=== PATIENT | male | born 1945 | race Caucasian/White ===

== ENCOUNTER 2016-12-11 05:26 | Inpatient (IN) | payer MEDICARE, BC ==
[~2016-12-11] VITALS: Ht 175.3 cm; Wt 83.9 kg
[2016-12-11] VITALS (9 sets, daily range): BP systolic 99–138; BP diastolic 62–106; PULSE 100–119; RESP 16–18; TEMP 96.8–99.2; O2SAT 96–98
[2016-12-11] MEDS ORDERED: MAGN400T24 (05:46)
[2016-12-11] MEDS ORDERED: ZANT150T2 PO (05:46)
[2016-12-11] MEDS ORDERED: AMLO5 PO (05:46)
[2016-12-11] MEDS ORDERED: LOSA50TA PO (05:46)
[2016-12-11] MEDS ORDERED: PROS5TAB PO (05:46)
[2016-12-11] MEDS ORDERED: GABA300C5 PO (05:46)
[2016-12-11] MEDS ORDERED: AMIO200T PO (05:46)
[2016-12-11] MEDS ORDERED: XARE20TA PO (05:46)
[2016-12-11] MEDS ORDERED: CALC600T10 PO (05:46)
[2016-12-11] MEDS ORDERED: TRAM50TA PO (05:46)
[2016-12-11] MEDS ORDERED: NITR0.4S SL (05:46)
[2016-12-11] MEDS ORDERED: FLUO1TAB3 PO (05:46)
[2016-12-11] MEDS ORDERED: HYDR-2376 PO (05:46)
[2016-12-11] MEDS ORDERED: SODIUM CHLOR 0.9% 1000 ML INJ 1,000 ML IV SCH (06:19)
--- NOTE | 2016-12-11 06:19 | PD ---
HPI Chief Complaint: Abdominal Pain Time Seen by Provider: 06:07 Travel History International Travel<30 days: No Contact w/Intl Traveler<30days: No Traveled to known affect area: No History of Present Illness HPI The patient is a 71-year-old male that complains of bilateral lower quadrant pain for almost 4 days. He has nausea and vomiting but denies any diarrhea. The patient has had a weight loss procedure where they bypassed part of his small intestine. When they did this they took out his appendix. He is also had a cholecystectomy. He also has a history of chronic atrial fibrillation. He has coronary artery disease and has had a coronary bypass procedure. He is from [facility]. He denies any chest pain or shortness of breath. He denies any fever or cough. The patient takes Xarelto and amiodarone for his atrial fibrillation. PFSH Past Medical History Atrial Fibrillation: Yes Heart Rhythm Problems: Yes Cardiac Catheterization: Yes Chest Pain: Yes Diminished Hearing: Yes GERD: Yes Hypertension: Yes Tetanus Vaccination: < 5 Years Influenza Vaccination: Yes Past Surgical History Abdominal Surgery: Yes (1971) Cardiac Surgery: Yes Cholecystectomy: Yes (2015) Coronary Artery Bypass Graft: Yes (1989) Social History Alcohol Use: No Tobacco Use: No Substance Use: No Allergies-Medications (Allergen,Severity, Reaction): Coded Allergies: No Known Allergies (Unverified , 12/11/16) Reported Meds & Prescriptions Reported Meds & Active Scripts Active Reported Calcium + D3 (Calcium Carbonate-Cholecalciferol) 600-200 Mg-Unit Tab 1 Tab PO BID Magnesium (Magnesium Oxide) 400 Mg Tablet Gabapentin 300 Mg Cap 300 Mg PO TID Nitrostat SL (Nitroglycerin) 0.4 Mg Subl 0.4 Mg SL DIRECTED PRN 1 tablet under the tongue as needed for chest pain. Repeat every 5 minutes for a total of 3 DOSES or call 911 if NO relief. Xarelto (Rivaroxaban) 20 Mg Tab 20 Mg PO DAILY Zantac (Ranitidine HCl) 150 Mg Tab 150 Mg PO BID Proscar (Finasteride) 5 Mg Tab 5 Mg PO DAILY Do not crush. Amiodarone (Amiodarone HCl) 200 Mg Tab 200 Mg PO DAILY Hydrocodone-Acetaminophen 7.5-300 Mg Tab 1 Tab PO Q4H PRN Tramadol (Tramadol HCl) 50 Mg Tab 50 Mg PO Q6H PRN Norvasc (Amlodipine Besylate) 5 Mg Tab 5 Mg PO DAILY Losartan (Losartan Potassium) 50 Mg Tab 50 Mg PO DAILY Fluoxetine (Fluoxetine HCl) 20 Mg Tab 20 Mg PO DAILY Review of Systems Except as stated in HPI: all other systems reviewed are Neg Physical Exam Narrative GENERAL: The patient is alert, oriented 3 in moderate apparent distress with his abdominal discomfort. His vital signs show heart rate of 100, atrial fibrillation rhythm but are otherwise normal. SKIN: Focused skin assessment warm/dry. HEAD: Atraumatic. Normocephalic. EYES: Pupils equal and round. No scleral icterus. No injection or drainage. ENT: No nasal bleeding or discharge. Mucous membranes pink and moist. NECK: Trachea midline. No JVD. CARDIOVASCULAR: Regular rate and rhythm. No murmur appreciated. RESPIRATORY: No accessory muscle use. Clear to auscultation. Breath sounds equal bilaterally. GASTROINTESTINAL: Abdomen soft, with tenderness to direct palpation in the bilateral lower quadrants, nondistended. Hepatic and splenic margins not palpable. No guarding or rebound is present. There is a right lower quadrant scar where they did the intestinal bypass procedure for weight loss which is well-healed. MUSCULOSKELETAL: No obvious deformities. No clubbing. No cyanosis. No edema. NEUROLOGICAL: Awake and alert. No obvious cranial nerve deficits. Motor grossly within normal limits. Normal speech. PSYCHIATRIC: Appropriate mood and affect; insight and judgment normal. Data Data Last Documented VS Vital Signs Date Time Temp Pulse Resp B/P Pulse Ox O2 Delivery O2 Flow Rate FiO2 12/11/16 06:32 96 Room Air 12/11/16 05:35 97.4 100 18 110/62 Orders Complete Blood Count With Diff (12/11/16 06:19) Comprehensive Metabolic Panel (12/11/16 06:19) Lipase (12/11/16 06:19) Urinalysis - C+S If Indicated (12/11/16 06:19) Ct Abd/Pel W Iv Contrast(Rout) (12/11/16 06:19) Iv Access Insert/Monitor (12/11/16 06:19) Ecg Monitoring (12/11/16 06:19) Oximetry (12/11/16 06:19) Ondansetron Inj (Zofran Inj) (12/11/16 06:30) Sodium Chlor 0.9% 1000 Ml Inj (Ns 1000 M (12/11/16 06:19) Sodium Chloride 0.9% Flush (Melissa Flush) (12/11/16 06:30) Oral Contrast - Adult (12/11/16 06:22) Diatrizoate Liq ( Gastroview Liq) (12/11/16 06:34) Labs Laboratory Tests Test 12/11/16 06:20 White Blood Count 14.8 TH/MM3 Red Blood Count 5.36 MIL/MM3 Hemoglobin 13.6 GM/DL Hematocrit 42.3 % Mean Corpuscular Volume 78.9 FL Mean Corpuscular Hemoglobin 25.3 PG Mean Corpuscular Hemoglobin 32.1 % Concent Red Cell Distribution Width 15.0 % Platelet Count 205 TH/MM3 Mean Platelet Volume 10.0 FL Neutrophils (%) (Auto) % Lymphocytes (%) (Auto) % Monocytes (%) (Auto) % Eosinophils (%) (Auto) % Basophils (%) (Auto) % Neutrophils # (Auto) TH/MM3 Lymphocytes # (Auto) TH/MM3 Monocytes # (Auto) TH/MM3 Eosinophils # (Auto) TH/MM3 Basophils # (Auto) TH/MM3 CBC Comment AUTO DIFF Sodium Level 136 MEQ/L Potassium Level 3.7 MEQ/L Chloride Level 101 MEQ/L Carbon Dioxide Level 23.8 MEQ/L Anion Gap 11 MEQ/L Blood Urea Nitrogen 21 MG/DL Creatinine 1.80 MG/DL Estimat Glomerular Filtration 37 ML/MIN Rate Random Glucose 84 MG/DL Calcium Level 8.4 MG/DL Total Bilirubin 0.9 MG/DL Aspartate Amino Transf 63 U/L (AST/SGOT) Alanine Aminotransferase 280 U/L (ALT/SGPT) Total Protein 6.9 GM/DL Albumin 2.8 GM/DL Lipase 223 U/L [facility] Medical Decision Making Medical Screen Exam Complete: Yes Emergency Medical Condition: Yes Medical Record Reviewed: Yes Differential Diagnosis Small bowel obstruction, dehydration, electrolyte disorder, gastritis, gastroenteritis, ischemic bowelunlikely, anemia, pancreatitis, pyelonephritis, cystitis, colitis Narrative Course It is now 0700 and the patient is left with Dr. Warner. Marcos Green MD Dec 11, 2016 06:19
[2016-12-11] MEDS ORDERED: SODIUM CHLORIDE 0.9% FLUSH 10 ML FLUSH IV FLUSH PRN ×2 (06:30→09:00)
[2016-12-11] MEDS ORDERED: ONDANSETRON HCL 4 MG/2 ML VIAL IVP ONE (06:30)
[2016-12-11 06:31] LABS: HEMATOCRIT 42.3 % (39.0-51.0); MEAN CELL VOLUME 78.9 FL (80.0-100.0); MEAN CORPUSCULAR HEMOGLOBIN 25.3 PG (27.0-34.0); MEAN CORPUSCULAR HGB CONC 32.1 % (32.0-36.0); PLATELET COUNT 205 TH/MM3 (150-450); RED BLOOD COUNT 5.36 MIL/MM3 (4.50-5.90); WHITE BLOOD COUNT 14.8 TH/MM3 (4.0-11.0)
[2016-12-11] MEDS ORDERED: DIATRIZOATE MEGLUM/DIATRIZOATE SOD 9 ML CUP ONE (06:34)
[2016-12-11 06:39] LABS: CHLORIDE 101 MEQ/L (98-107); POTASSIUM 3.7 MEQ/L (3.5-5.1); SODIUM (NA) 136 MEQ/L (136-145)
[2016-12-11 06:41] LABS: HEMO FLAGS AUTO DIFF
[2016-12-11 06:43] LABS: ANION GAP 11 MEQ/L (5-15); BICARBONATE 23.8 MEQ/L (21.0-32.0); BLOOD UREA NITROGEN 21 MG/DL (7-18)
[2016-12-11 06:46] LABS: ALT (GPT) 280 U/L (12-78); AST (GOT) 63 U/L (15-37); GLOMERULAR FILTRATION RATE 37 ML/MIN (>89)
[2016-12-11 06:47] LABS: TOTAL BILIRUBIN ADULT 0.9 MG/DL (0.2-1.0)
[2016-12-11 06:49] LABS: ALKALINE PHOSPHATASE 234 U/L (45-117)
[2016-12-11 06:58] LABS: BANDS 3 % (0-6); EOSINOPHILS 1 % (0-4); NEUTROPHIL # MANUAL DIFF 13.3 TH/MM3 (1.8-7.7); POLYS (SEG NEUTROPHILS) 87 % (16-70); WBC DIFF SAMPLE 100
[2016-12-11 06:59] LABS: PLATELET ESTIMATE SMEAR NORMAL (NORMAL); PLATELET MORPHOLOGY NORMAL (NORMAL); SCAN/DIFF FINAL DIFF MANUAL
[2016-12-11] MEDS ORDERED: IODIXANOL 320 MG/ML 10 ML VIAL (for Rad CT) IV ONE (07:54)
--- NOTE | 2016-12-11 07:57 | PD ---
Data Data Last Documented VS Vital Signs Date Time Temp Pulse Resp B/P Pulse Ox O2 Delivery O2 Flow Rate FiO2 12/11/16 06:47 16 12/11/16 06:47 106 130/81 98 12/11/16 06:32 Room Air 12/11/16 05:35 97.4 Orders Complete Blood Count With Diff (12/11/16 06:19) Comprehensive Metabolic Panel (12/11/16 06:19) Lipase (12/11/16 06:19) Urinalysis - C+S If Indicated (12/11/16 06:19) Ct Abd/Pel W Iv Contrast(Rout) (12/11/16 06:19) Iv Access Insert/Monitor (12/11/16 06:19) Ecg Monitoring (12/11/16 06:19) Oximetry (12/11/16 06:19) Ondansetron Inj (Zofran Inj) (12/11/16 06:30) Sodium Chlor 0.9% 1000 Ml Inj (Ns 1000 M (12/11/16 06:19) Sodium Chloride 0.9% Flush (Ns Flush) (12/11/16 06:30) Oral Contrast - Adult (12/11/16 06:22) Diatrizoate Liq ( Gastrorogelio Liq) (12/11/16 06:34) Iodixanol 320 Inj (Rad Ct) (Visipaque 32 (12/11/16 07:54) Hydromorphone Pf Inj (Dilaudid Pf Inj) (12/11/16 08:30) Mri Mrcp W & W/O Contrast (12/11/16 ) Labs Laboratory Tests Test 12/11/16 12/11/16 06:20 08:00 White Blood Count 14.8 TH/MM3 Red Blood Count 5.36 MIL/MM3 Hemoglobin 13.6 GM/DL Hematocrit 42.3 % Mean Corpuscular Volume 78.9 FL Mean Corpuscular Hemoglobin 25.3 PG Mean Corpuscular Hemoglobin 32.1 % Concent Red Cell Distribution Width 15.0 % Platelet Count 205 TH/MM3 Mean Platelet Volume 10.0 FL Neutrophils (%) (Auto) % Lymphocytes (%) (Auto) % Monocytes (%) (Auto) % Eosinophils (%) (Auto) % Basophils (%) (Auto) % Neutrophils # (Auto) TH/MM3 Lymphocytes # (Auto) TH/MM3 Monocytes # (Auto) TH/MM3 Eosinophils # (Auto) TH/MM3 Basophils # (Auto) TH/MM3 CBC Comment AUTO DIFF Differential Total Cells 100 Counted Neutrophils % (Manual) 87 % Band Neutrophils % 3 % Lymphocytes % 3 % Monocytes % 6 % Eosinophils % 1 % Neutrophils # (Manual) 13.3 TH/MM3 Differential Comment FINAL DIFF MANUAL Platelet Estimate NORMAL Platelet Morphology Comment NORMAL Red Cell Morphology Comment NORMAL Sodium Level 136 MEQ/L Potassium Level 3.7 MEQ/L Chloride Level 101 MEQ/L Carbon Dioxide Level 23.8 MEQ/L Anion Gap 11 MEQ/L Blood Urea Nitrogen 21 MG/DL Creatinine 1.80 MG/DL Estimat Glomerular Filtration 37 ML/MIN Rate Random Glucose 84 MG/DL Calcium Level 8.4 MG/DL Total Bilirubin 0.9 MG/DL Aspartate Amino Transf 63 U/L (AST/SGOT) Alanine Aminotransferase 280 U/L (ALT/SGPT) Alkaline Phosphatase 234 U/L Total Protein 6.9 GM/DL Albumin 2.8 GM/DL Lipase 223 U/L Urine Collection Type CLEAN CATCH Urine Color YELLOW Urine Turbidity CLEAR Urine pH 6.0 Urine Specific [place] 1.012 Urine Protein 30 mg/dL Urine Glucose (UA) NEG mg/dL Urine Ketones NEG mg/dL Urine Occult Blood SMALL Urine Nitrite NEG Urine Bilirubin NEG Urine Leukocyte Esterase NEG Urine RBC 4-9 /hpf Urine Squamous Epithelial 6-8 /hpf Cells Urine Amorphous Sediment MOD Urine Hyaline Casts 0-2 /lpf Urine Fine Granular Casts 0-2 /lpf Microscopic Urinalysis Comment CULT NOT INDICATED Urine Collection Time 0800 [facility] Medical Record Reviewed: Yes Supervised Visit with LURDES: No Narrative Course CBC & BMP Diagram 12/11/16 06:20 Neutrophils 87% Bands 3 AST 63 ALT 280 Alk phos [address] ab/pel: pancreatitis Pt denies etoh, no hx HLD, pt reports hx cholecystectomy 2/2 GB sludge. ? Choledocholithiasis ? poss mass. d/w GI, Dr Han, who advises transfer to [facility] for MRCP and if necessary ERCP. D/w Dr Sanchez for H. Pt HD stable in [facility] and considered stable for floor with telemetry at [facility]. Diagnosis Primary Impression: Pancreatitis Qualified Code: K85.90 - Acute pancreatitis, unspecified complication status, unspecified pancreatitis type Admitting Information Admitting Physician Requests: Admit Chema Warner MD Dec 11, 2016 07:57
--- NOTE | 2016-12-11 08:09 | RADRPT ---
EXAM DATE/TIME: 12/11/2016 07:35 This report includes an Addendum and supersedes previous reports for this exam. [facility] COMPARISON: No previous studies available for comparison. INDICATIONS : Bilateral mid abdominal pain with nausea. IV CONTRAST: 50 cc Visipaque (iodixanol) IV ORAL CONTRAST: Prescribed oral contrast ingested. RADIATION DOSE: 19.13 CTDIvol (mGy) MEDICAL HISTORY : Cardiovascular disease. Gastroesophageal reflux disease. Hypertension. SURGICAL HISTORY : CABG Cholecystectomy. ENCOUNTER: Initial ACUITY: 3 days PAIN SCALE: 5/10 LOCATION: Bilateral abdomen TECHNIQUE: Volumetric scanning of the abdomen and pelvis was performed. Using automated exposure control and ad justment of the mA and/or kV according to patient size, radiation dose was kept as low as reasonably achievable to obtain optimal diagnostic quality images. DICOM format image data is available electro nically for review and comparison. FINDINGS: The patient is status post cholecystectomy. There is a cyst in the left lobe of the liver medial segm ent at the dome 1.1 cm. There is abnormal increased attenuation of the peripancreatic fat and trace f luid and stranding characteristic of acute pancreatitis. The adrenal glands, spleen are unremarkable. Small cyst upper pole left kidney. Right kidney unremarkable. Atherosclerotic calcification of the a alvino and iliac vessels are noted. There is a metallic rectangular shaped foreign body within the infr arenal IVC on image 53. Urinary bladder is unremarkable. There is no evidence of bowel obstruction. T he lung bases are clear. Osseous structures demonstrate degenerative changes with L5 spondylolysis an d levoscoliosis. CONCLUSION: 1. Acute pancreatitis. 2. Left renal cyst. 3. Liver cyst. 4. Atherosclerosis. Zoran Wilkerson MD on December 11, 2016 at 8:04 Board Certified Radiologist. This report was verified electronically. ADDENDUM: Upon further review there is a calcified stone in the distal common bile duct measuring 7.1 mm. Zoran Wilkerson MD on December 11, 2016 at 11:02 Board Certified Radiologist. This report was verified electronically.
[2016-12-11 08:10] LABS: BLOOD, URINE SMALL (NEG); GLUCOSE,URINE NEG (NEG); KETONE, URINE NEG (NEG); NITRITE,URINE NEG (NEG)
[2016-12-11 08:15] LABS: METHOD OF COLLECTION CLEAN CATCH; URINE COLOR YELLOW (YELLW/STRAW)
[2016-12-11 08:17] LABS: COMMENT (UR) CULT NOT INDICATED; COMMENT2 (UR) MUCOUS PRESENT; CULTURE IF INDICATED CULT NOT INDICATED; HYALINE CAST, URINE 0-2 /lpf (RARE)
[2016-12-11] MEDS ORDERED: HYDROmorphone HCL PF 1 MG/ML VIAL IV PUSH ONE (08:30)
[2016-12-11] MEDS ORDERED: ACETAMINOPHEN 325 MG TAB PO PRN (09:00)
[2016-12-11] MEDS ORDERED: BISACODYL 10 MG SUPP RECTAL PRN (09:00)
[2016-12-11] MEDS ORDERED: LACTULOSE SYRUP 20 GM/30 ML CUP PO PRN (09:00)
[2016-12-11] MEDS ORDERED: MAGNESIUM HYDROXIDE SUSP 30 ML CUP PO PRN (09:00)
[2016-12-11] MEDS ORDERED: HEPARIN SODIUM - SQ 10,000 UNITS/ML VIAL SQ SCH (09:00)
[2016-12-11] MEDS ORDERED: SENNOSIDES 8.6 MG TAB PO PRN (09:00)
[2016-12-11] MEDS ORDERED: NALOXONE HCL 0.4 MG/ML AMP IV PRN (09:00)
[2016-12-11] MEDS: SODIUM CHLOR 0.9% 1000 ML INJ 1,000 ML IV SCH (09:23)
--- NOTE | 2016-12-11 09:34 | HHI.HP ---
HPI Service [facility] Primary Care Physician Non-Staff Admission Diagnosis Pancreatitis Diagnoses: Chief Complaint: Abdominal pain, nausea and vomiting. Travel History International Travel<30 Days: No Contact w/Intl Traveler <30 Da: No Traveled to Known Affected Are: No Sepsis Criteria SIRS Criteria (2 or more): Heart rate over 90, WBC > 11431, < 4000 or > 10% bands History of Present Illness Mr. Muhammad is a pleasant 71-year-old male with a history of atrial fibrillation currently on Xarelto, CAD status post CABG, cholecystectomy who presents to the emergency department on 12/11/2016 due to nausea vomiting and abdominal pain. About 4 days ago patient started having nausea vomiting and abdominal pain mostly in the right upper quadrant as well as mid epigastric area. His epigastric pain does not radiate to the back. His pain is sharp and comes off and on. He denies any fever or chills. Patient felt somewhat better on 12/09/2016. However last night he felt lethargic and this morning he decided to come to the emergency department for evaluation. Denies any hematuria or dysuria. No cough or shortness of breath. No bowel movement in 2 days. Review of Systems Except as stated in HPI: all other systems reviewed are Neg Past Family Social History Past Medical History Coronary artery disease Atrial fibrillation Hypertension GERD Past Surgical History Small intestinal bypass surgery for weight loss 1972 Cholecystectomy CABG in 1989 Rotator cuff surgery Carpal tunnel surgery bilateral. Reported Medications Calcium + D3 (Calcium Carbonate-Cholecalciferol) 600-200 Mg-Unit Tab 1 Tab PO BID Magnesium (Magnesium Oxide) 400 Mg Tablet Gabapentin 300 Mg Cap 300 Mg PO TID Nitrostat SL (Nitroglycerin) 0.4 Mg Subl 0.4 Mg SL DIRECTED PRN 1 tablet under the tongue as needed for chest pain. Repeat every 5 minutes for a total of 3 DOSES or call 911 if NO relief. Xarelto (Rivaroxaban) 20 Mg Tab 20 Mg PO DAILY Zantac (Ranitidine HCl) 150 Mg Tab 150 Mg PO BID Proscar (Finasteride) 5 Mg Tab 5 Mg PO DAILY Do not crush. Amiodarone (Amiodarone HCl) 200 Mg Tab 200 Mg PO DAILY Hydrocodone-Acetaminophen 7.5-300 Mg Tab 1 Tab PO Q4H PRN Tramadol (Tramadol HCl) 50 Mg Tab 50 Mg PO Q6H PRN Norvasc (Amlodipine Besylate) 5 Mg Tab 5 Mg PO DAILY Losartan (Losartan Potassium) 50 Mg Tab 50 Mg PO DAILY Fluoxetine (Fluoxetine HCl) 20 Mg Tab 20 Mg PO DAILY Allergies: Coded Allergies: No Known Allergies (Unverified , 12/11/16) Family History Both parents had diabetes mellitus and congestive heart failure. No family history of other murmurs or Parkinson's. Social History Quit smoking in 1989. He drinks beer occasionally. Physical Exam Vital Signs Vital Signs Date Time Temp Pulse Resp B/P Pulse Ox O2 Delivery O2 Flow Rate FiO2 12/11/16 08:34 103 16 99/87 98 12/11/16 06:47 16 12/11/16 06:47 106 16 130/81 98 12/11/16 06:32 96 Room Air 12/11/16 05:35 97.4 100 18 110/62 96 Physical Exam GENERAL: This is a well-nourished, well-developed patient, in no apparent distress. SKIN: No rashes, ecchymoses or lesions. Warm and dry. HEAD: Atraumatic. Normocephalic. No temporal or scalp tenderness. EYES: Pupils equal round and reactive. No injection or drainage. ENT: Nose without bleeding, purulent drainage or septal hematoma. Airway patent. NECK: Trachea midline. No lymphadenopathy. Supple, nontender, no meningeal signs. CARDIOVASCULAR: Irregularly irregular, tachycardic without murmurs, gallops, or rubs. No JVD. RESPIRATORY: Clear to auscultation. Breath sounds equal bilaterally. No wheezes , rales, or rhonchi. GASTROINTESTINAL: Abdomen soft, nondistended. No guarding. Tender to palpation over right upper and lower quadrants as well as some mild tenderness over epigastric area. MUSCULOSKELETAL: Extremities without clubbing, cyanosis, or edema. NEUROLOGICAL: Awake and alert. Cranial nerves II through XII intact. No focal neurological deficits. Normal speech. Laboratory Laboratory Tests Test 12/11/16 12/11/16 06:20 08:00 White Blood Count 14.8 Red Blood Count 5.36 Hemoglobin 13.6 Hematocrit 42.3 Mean Corpuscular Volume 78.9 Mean Corpuscular Hemoglobin 25.3 Mean Corpuscular Hemoglobin 32.1 Concent Red Cell Distribution Width 15.0 Platelet Count 205 Mean Platelet Volume 10.0 Neutrophils (%) (Auto) Lymphocytes (%) (Auto) Monocytes (%) (Auto) Eosinophils (%) (Auto) Basophils (%) (Auto) Neutrophils # (Auto) Lymphocytes # (Auto) Monocytes # (Auto) Eosinophils # (Auto) Basophils # (Auto) CBC Comment AUTO DIFF Differential Total Cells 100 Counted Neutrophils % (Manual) 87 Band Neutrophils % 3 Lymphocytes % 3 Monocytes % 6 Eosinophils % 1 Neutrophils # (Manual) 13.3 Differential Comment FINAL DIFF MANUAL Platelet Estimate NORMAL Platelet Morphology Comment NORMAL Red Cell Morphology Comment NORMAL Sodium Level 136 Potassium Level 3.7 Chloride Level 101 Carbon Dioxide Level 23.8 Anion Gap 11 Blood Urea Nitrogen 21 Creatinine 1.80 Estimat Glomerular Filtration 37 Rate Random Glucose 84 Calcium Level 8.4 Total Bilirubin 0.9 Aspartate Amino Transf 63 (AST/SGOT) Alanine Aminotransferase 280 (ALT/SGPT) Alkaline Phosphatase 234 Total Protein 6.9 Albumin 2.8 Lipase 223 Urine Collection Type CLEAN CATCH Urine Color YELLOW Urine Turbidity CLEAR Urine pH 6.0 Urine Specific [place] 1.012 Urine Protein 30 Urine Glucose (UA) NEG Urine Ketones NEG Urine Occult Blood SMALL Urine Nitrite NEG Urine Bilirubin NEG Urine Leukocyte Esterase NEG Urine RBC 4-9 Urine Squamous Epithelial 6-8 Cells Urine Amorphous Sediment MOD Urine Hyaline Casts 0-2 Urine Fine Granular Casts 0-2 Microscopic Urinalysis Comment CULT NOT INDICATED Urine Collection Time 0800 Result Diagram: 12/11/1661912/11/16619 Imaging Last Impressions Abdomen/Pelvis CT 12/11/1619 Signed Impressions: Service Date/Time: Sunday, December 11, 2016 07:35 - CONCLUSION: 1. Acute pancreatitis. 2. Left renal cyst. 3. Liver cyst. 4. Atherosclerosis. Zoran Wilkerson MD ADDENDUM: Upon further review there is a calcified stone in the distal common bile duct measuring 7.1 mm. Zoran Wilkerson MD Cholangiopancreatography MRI 12/11/16 0000 Signed Impressions: Service Date/Time: Sunday, December 11, 2016 10:10 - CONCLUSION: 1. Acute pancreatitis. 2. Hepatic cysts and a 1.6 cm pancreatic cyst, simple in appearance. 3. Left renal cyst. 4. Choledocholithiasis with a solitary stone in the distal common bile duct. Zoran Wilkerson MD Assessment and Plan Problem List: (1) Choledocholithiasis ICD Code: K80.50 Status: Acute (2) Acute pancreatitis ICD Code: K85.90 Status: Acute (3) CAD (coronary artery disease) ICD Code: I25.10 Status: Acute (4) HTN (hypertension) ICD Code: I10 Status: Acute (5) Atrial fibrillation ICD Code: I48.91 Status: Acute Assessment and Plan Mr. Muhammad is a 71-year-old male with a history of coronary artery disease, cholecystectomy who presents to the emergency department today due to nausea vomiting and abdominal pain that started about 4 days ago. Patient's abdominal pain is mostly in the right upper quadrant as well as epigastric area. MRCP indicates choledocholithiasis with a solitary stone in the CBD. GI evaluated patient and subsequently, patient was transferred to the main hospital for ERCP. - Choledocholithiasis - Acute pancreatitis - Reviewed CT abd/pelvis images by vt - shows a CBD calcified stone. - MRCP indicates stone in CBD. - Transfer patient to the main hospital for ERCP per GI. - Continue IV fluid @ 150cc/hour and IV Dilaudid 0.5mg Q4hrs PRN. - CAD s/p CABG in 1989. - Hypertension - Atrial fibrillation - Continue Amiodarone 200mg Qday and Xarelto 20mg Qday. - Amlodipine 5mg, Losartan 50mg Qday. - Start Metoprolol 25mg Q12hrs for rate control. - Probable acute kidney injury - Creatinine 1.80. Baseline unknown. - Will continue to monitor. Continue IV fluid. - BPH - continue Finasteride 5mg Qday Full code. Xarelto. Physician Certification 2 Midnight Certification Type: Admission for Inpatient Services Order for Inpatient Services The services are ordered in accordance with Medicare regulations or non- Medicare payer requirements, as applicable. In the case of services not specified as inpatient-only, they are appropriately provided as inpatient services in accordance with the 2-midnight benchmark. Estimated LOS (days): 2 days is the estimated time the patient will need to remain in the hospital, assuming treatment plan goals are met and no additional complications. Post-Hospital Plan: Home Lana Sanchez DO Dec 11, 2016 9:34 am
[2016-12-11] MEDS: HYDROmorphone HCL PF 1 MG/ML VIAL IV PUSH PRN ×3 (10:59→20:14)
[2016-12-11] MEDS: SODIUM CHLORIDE 0.9% FLUSH 10 ML FLUSH IV FLUSH SCH ×2 (10:59→20:09)
--- NOTE | 2016-12-11 11:00 | RADRPT ---
EXAM DATE/TIME: 12/11/2016 10:10 [facility] COMPARISON: CT ABDOMEN & PELVIS W CONTRAST, December 11, 2016, 7:35. INDICATIONS : Pancreatitis. MEDICAL HISTORY : Hypertension. Cardiovascular disease SURGICAL HISTORY : Gastric bypass. CABG Cholecystectomy. Rotator cuff. ENCOUNTER: Initial ACUITY: 1 day PAIN SCORE: 2/10 LOCATION: abdominal TECHNIQUE: Multiplanar, multisequence magnetic resonance imaging of the abdomen was performed. High-resolution 3D dataset was utilized to reconstruct maximum-intensity projection (MIP) images. FINDINGS: INTRAHEPATIC BILE DUCTS: Within normal limits. No significant anatomical variant is present. EXTRAHEPATIC BILE DUCTS: The common bile duct measures 8 mm at the level of the distal common bile duct best seen on T2 haste image 2 of series 10 is a focal area of decreased T2 signal measuring 6.5 mm consistent with a choled ocholith. GALLBLADDER: Cholecystectomy. LIVER: Normal size and signal intensity. No concerning liver lesion is identified on this non-contrast exam. PANCREAS: The main pancreatic duct is normal in size. There is no significant anatomical variant. 1.6 cm simpl e appearing cyst at the proximal body of the pancreas. Peripancreatic fluid and mild pancreatic edema is noted consistent with pancreatitis. OTHER: There is a cyst at the upper pole of the left kidney, simple in appearance. There is a cyst at the do me of the liver and a tiny cyst in the lateral segment left lobe. CONCLUSION: 1. Acute pancreatitis. 2. Hepatic cysts and a 1.6 cm pancreatic cyst, simple in appearance. 3. Left renal cyst. 4. Choledocholithiasis with a solitary stone in the distal common bile duct. Zoran Wilkerson MD on December 11, 2016 at 10:53 Board Certified Radiologist. This report was verified electronically.
--- NOTE | 2016-12-11 11:03 | PD.CONS ---
HPI History of Present Illness This is a 71 year old male w/ hx CAD, AF on xarelto who presented to ER for abd pain, decreased appetite, n/v. 4 days ago he began having n/v and RUQ pain with lower abd pain as well. The pain is sharp and comes and goes. Laying flat helps. No blood in emesis, diarrhea, or fevers per pt but his reports he did feel warm and sweaty. No prior hx pancreatitis, heavy drinking recently. He has had his gallbladder removed. Last EGD/colonoscopy 1998 and can recall no abnormal findings; he is scheduled for colon[place] next week [place]. (Gogo Patel) PFSH Past Medical History CAD AF GERD HTN BPH Past Surgical History bilat carpal tunnel repair CABG rotator cuff repair cholecystectomy 2016 intestinal bypass for weight loss 1971 (Gogo Patel) Coded Allergies: No Known Allergies (Unverified , 12/11/16) Family History DM, CHF Social History no ETOH currently, distant hx heavy drinking 50y ago quit smoking 1989 no illicit drugs (Gogo Patel) Review of Systems Constitutional: DENIES: Fever Eyes: DENIES: Blurred vision Ears, nose, mouth, throat: COMPLAINS OF: Hearing loss Respiratory: DENIES: Hemoptysis Cardiovascular: DENIES: Chest pain Gastrointestinal: COMPLAINS OF: Abdominal pain, Nausea, Vomiting, Anorexia, DENIES: Black stools, Bloody stools, Constipation, Diarrhea Genitourinary: DENIES: Urinary frequency Musculoskeletal: DENIES: Joint Swelling Integumentary: DENIES: Rash Neurologic: DENIES: Abnormal gait Psychiatric: DENIES: Confusion (Gogo Patel) GI Exam Vitals I&O Vital Signs Date Time Temp Pulse Resp B/P Pulse Ox O2 Delivery O2 Flow Rate FiO2 12/11/16 09:30 117 16 115/77 97 12/11/16 08:34 103 16 99/87 98 12/11/16 06:47 16 12/11/16 06:47 106 16 130/81 98 12/11/16 06:32 96 Room Air 12/11/16 05:35 97.4 100 18 110/62 96 Imaging Last Impressions Abdomen/Pelvis CT 12/11/16 0619 Signed Impressions: Service Date/Time: Sunday, December 11, 2016 07:35 - CONCLUSION: 1. Acute pancreatitis. 2. Left renal cyst. 3. Liver cyst. 4. Atherosclerosis. Zoran Wilkerson MD Laboratory Test 12/11/16 12/11/16 06:20 08:00 White Blood Count 14.8 TH/MM3 Red Blood Count 5.36 MIL/MM3 Hemoglobin 13.6 GM/DL Hematocrit 42.3 % Mean Corpuscular Volume 78.9 FL Mean Corpuscular Hemoglobin 25.3 PG Mean Corpuscular Hemoglobin 32.1 % Concent Red Cell Distribution Width 15.0 % Platelet Count 205 TH/MM3 Mean Platelet Volume 10.0 FL Neutrophils (%) (Auto) % Lymphocytes (%) (Auto) % Monocytes (%) (Auto) % Eosinophils (%) (Auto) % Basophils (%) (Auto) % Neutrophils # (Auto) TH/MM3 Lymphocytes # (Auto) TH/MM3 Monocytes # (Auto) TH/MM3 Eosinophils # (Auto) TH/MM3 Basophils # (Auto) TH/MM3 CBC Comment AUTO DIFF Differential Total Cells 100 Counted Neutrophils % (Manual) 87 % Band Neutrophils % 3 % Lymphocytes % 3 % Monocytes % 6 % Eosinophils % 1 % Neutrophils # (Manual) 13.3 TH/MM3 Differential Comment FINAL DIFF MANUAL Platelet Estimate NORMAL Platelet Morphology Comment NORMAL Red Cell Morphology Comment NORMAL Sodium Level 136 MEQ/L Potassium Level 3.7 MEQ/L Chloride Level 101 MEQ/L Carbon Dioxide Level 23.8 MEQ/L Anion Gap 11 MEQ/L Blood Urea Nitrogen 21 MG/DL Creatinine 1.80 MG/DL Estimat Glomerular Filtration 37 ML/MIN Rate Random Glucose 84 MG/DL Calcium Level 8.4 MG/DL Total Bilirubin 0.9 MG/DL Aspartate Amino Transf 63 U/L (AST/SGOT) Alanine Aminotransferase 280 U/L (ALT/SGPT) Alkaline Phosphatase 234 U/L Total Protein 6.9 GM/DL Albumin 2.8 GM/DL Lipase 223 U/L Urine Collection Type CLEAN CATCH Urine Color YELLOW Urine Turbidity CLEAR Urine pH 6.0 Urine Specific [place] 1.012 Urine Protein 30 mg/dL Urine Glucose (UA) NEG mg/dL Urine Ketones NEG mg/dL Urine Occult Blood SMALL Urine Nitrite NEG Urine Bilirubin NEG Urine Leukocyte Esterase NEG Urine RBC 4-9 /hpf Urine Squamous Epithelial 6-8 /hpf Cells Urine Amorphous Sediment MOD Urine Hyaline Casts 0-2 /lpf Urine Fine Granular Casts 0-2 /lpf Microscopic Urinalysis Comment CULT NOT INDICATED Urine Collection Time 0800 Physical Examination HEENT: PERRL; no jaundice. CHEST: irregularly irregular HR, tachy CARDIAC: RRR ABDOMEN: Soft, nondistended, RUQ TTP, firmness felt in area of TTP; no hepatosplenomegaly; bowel sounds are present in all four quadrants. EXTREMITIES: No clubbing, cyanosis, or edema. SKIN: Normal; no rash; no jaundice. ABALONE DIVER: No focal deficits; alert and oriented times three. (Gogo Patel) Assessment and Plan Plan ASSESSMENT - abdominal pain - RUQ/right side pain. CT scan indicates acute pancreatitis. Lipase WNL - n/v - unclear etiology - elevated LFTs - admission AST 63, ALT 280, ALP 234, Tbil 0.9, does not appear obstructive at this time. d/w primary PLAN - MRCP - if indicated after MRCP, transfer [place] [facility] - monitor LFTs - supportive care - further recommendations to follow This pt seen by myself and DR Han and this note is written on her behalf ( Gogo Patel) Physician Comments seen, examined agree with above MRCP noted-cbd stone -we will transfer to [facility] [place] for ercp tomorrow clear liquid diet today (Malissa Han MD) Gogo Patel Dec 11, 2016 11:03 Malissa Han MD Dec 11, 2016 12:30
[2016-12-11] MEDS: DOCUSATE SODIUM 50 MG/SENNA 8.6 MG TAB PO SCH ×2 (12:18→20:14)
[2016-12-11] MEDS ORDERED: METOPROLOL TARTRATE 25 MG TAB PO ONE (13:30)
[2016-12-11] MEDS: GABAPENTIN 300 MG CAP PO SCH ×2 (14:08→16:57)
[2016-12-11] MEDS: FAMOTIDINE 20 MG TAB PO SCH ×2 (14:08→20:09)
[2016-12-11] MEDS: CALCIUM/VITAMIN D 250 MG/125 U TAB PO SCH (20:09)
[2016-12-11] MEDS: METOPROLOL TARTRATE 25 MG TAB PO SCH (20:09)
[2016-12-12] VITALS: BP 133/72; PULSE 94; RESP 17; TEMP 97.1; O2SAT 96
[2016-12-12] MEDS ORDERED: POVIDONE IODINE 5% (ANTISEPSIS KIT) 4 APPLICATIONS EACH NARE PRN (02:00)
[2016-12-12] MEDS ORDERED: CHLORHEXIDINE GLUCONATE 2 % 1 PACK (2 CLOTHS) TOPICAL PRN (02:00)
[2016-12-12] MEDS ORDERED: LACTATED RINGER'S 1000 ML IV PRN (02:00)
[2016-12-12 06:01] LABS: AUTOMATED NEUTROPHIL # 9.3 TH/MM3 (1.8-7.7); BASOPHIL % 0.2 % (0.0-2.0); EOSINOPHIL % 0.4 % (0.0-4.0); HEMATOCRIT 37.8 % (39.0-51.0); HEMO FLAGS DIFF FINAL; LYMPH % 5.9 % (9.0-44.0); LYMPHOCYTE # 0.7 TH/MM3 (1.0-4.8); MEAN CELL VOLUME 79.1 FL (80.0-100.0); MEAN CORPUSCULAR HEMOGLOBIN 25.1 PG (27.0-34.0); MEAN CORPUSCULAR HGB CONC 31.8 % (32.0-36.0); NEUT % 83.5 % (16.0-70.0); PLATELET COUNT 161 TH/MM3 (150-450); RED BLOOD COUNT 4.77 MIL/MM3 (4.50-5.90); RED CELL DISTRIBUTION WIDTH 16.2 % (11.6-17.2); WHITE BLOOD COUNT 11.2 TH/MM3 (4.0-11.0)
[2016-12-12] MEDS: SODIUM CHLOR 0.9% 1000 ML INJ 1,000 ML IV SCH ×3 (06:01→23:21)
[2016-12-12 06:37] LABS: BICARBONATE 23.8 MEQ/L (21.0-32.0); POTASSIUM 4.3 MEQ/L (3.5-5.1)
[2016-12-12] MEDS: RIVAROXABAN 20 MG TAB PO SCH (07:29)
[2016-12-12 08:00] VITALS: BP 137/86; PULSE 107; RESP 18; TEMP 96.6; O2SAT 96
[2016-12-12] MEDS: SODIUM CHLORIDE 0.9% FLUSH 10 ML FLUSH IV FLUSH SCH ×2 (08:36→20:47)
[2016-12-12] MEDS: FINASTERIDE 5 MG TAB PO SCH (08:38)
[2016-12-12] MEDS: AMIODARONE 200 MG TAB PO SCH (08:38)
[2016-12-12] MEDS: LOSARTAN 50 MG TAB PO SCH (08:38)
[2016-12-12] MEDS: FLUoxetine HCL 20 MG CAP PO SCH (08:38)
[2016-12-12] MEDS: CALCIUM/VITAMIN D 250 MG/125 U TAB PO SCH ×2 (08:39→20:40)
[2016-12-12] MEDS: amLODIPine BESYLATE 5 MG TAB PO SCH (08:39)
[2016-12-12] MEDS: DOCUSATE SODIUM 50 MG/SENNA 8.6 MG TAB PO SCH ×2 (08:39→20:41)
[2016-12-12] MEDS: GABAPENTIN 300 MG CAP PO SCH ×3 (08:39→17:52)
[2016-12-12] MEDS: METOPROLOL TARTRATE 25 MG TAB PO SCH ×2 (08:39→20:40)
[2016-12-12] MEDS: FAMOTIDINE 20 MG TAB PO SCH ×2 (08:39→20:40)
--- NOTE | 2016-12-12 08:42 | HHI.PR ---
Subjective Remarks f/u; choledocholithiasis in no acute distress. still with some pain to the RUQ. no nausea or vomiting. afebrile. d/w the RN. Objective Vitals Vital Signs Date Time Temp Pulse Resp B/P Pulse Ox O2 Delivery O2 Flow Rate FiO2 12/12/16 00:00 97.1 94 17 133/72 96 12/11/16 20:00 96.8 111 17 131/79 97 12/11/16 17:27 18 12/11/16 16:00 99.2 119 16 137/106 96 12/11/16 12:00 98.6 112 16 135/92 97 12/11/16 11:15 106 16 138/89 96 12/11/16 09:30 117 16 115/77 97 I/O 12/11/16 12/11/16 12/11/16 12/12/16 12/12/16 12/12/16 07:00 15:00 23:00 07:00 15:00 23:00 Intake Total 1200 ml 240 ml 993 ml Output Total 1100 ml 650 ml 1000 ml Balance 100 ml -410 ml -7 ml Intake Oral 200 ml 240 ml 240 ml IV Total 1000 ml 753 ml Output Urine Total 1100 ml 650 ml 1000 ml # Voids 1 1 Result Diagram: 12/12/16 0525 12/12/16 0525 Imaging Last Impressions Abdomen/Pelvis CT 12/11/16 0619 Signed Impressions: Service Date/Time: Sunday, December 11, 2016 07:35 - CONCLUSION: 1. Acute pancreatitis. 2. Left renal cyst. 3. Liver cyst. 4. Atherosclerosis. Zoran Wilkerson MD ADDENDUM: Upon further review there is a calcified stone in the distal common bile duct measuring 7.1 mm. Zoran Wilkerson MD Cholangiopancreatography MRI 12/11/16 0000 Signed Impressions: Service Date/Time: Sunday, December 11, 2016 10:10 - CONCLUSION: 1. Acute pancreatitis. 2. Hepatic cysts and a 1.6 cm pancreatic cyst, simple in appearance. 3. Left renal cyst. 4. Choledocholithiasis with a solitary stone in the distal common bile duct. Zoran Wilkerson MD Objective Remarks GENERAL: This is a well-nourished, well-developed patient, in no apparent distress. CARDIOVASCULAR: Regular rate and irregular rhythm without murmurs, gallops, or rubs. RESPIRATORY: Clear to auscultation. Breath sounds equal bilaterally. No wheezes , rales, or rhonchi. GASTROINTESTINAL: Abdomen soft, RUQ tenderness, nondistended. Normal, active bowel sounds MUSCULOSKELETAL: Extremities without clubbing, cyanosis, or edema. NEURO: Alert & Oriented x4 to person, place, time, situation. Moves all ext x4 Medications and IVs Current Medications Ondansetron HCl 4 mg 4 mg ONCE ONCE IVP Last administered on 12/11/16 06:28; Start 12/11/16 at 06:30; Stop 12/11/16 at 06:31; Status DC Sodium Chloride (NS 1000 ml Inj) 1,000 ml @ 1,000 mls/hr Q1H IV Last administered on 12/11/16 06:28; Start 12/11/16 at 06:19; Stop 12/11/16 at 07:18; Status DC Sodium Chloride (NS Flush) 2 ml UNSCH PRN IV FLUSH FLUSH AFTER USING IV ACCESS ; Start 12/11/16 at 06:30; Stop 12/11/16 at 08:59; Status DC Diatrizoate Meglum/ Diatrizoate Sod ( Gastroview Liq) 18 ml STK-MED ONCE .ROUTE Last administered on 12/11/16 06:40; Start 12/11/16 at 06:34; Stop at 06:35; Status DC Iodixanol (VISIPAQUE 320 INJ (Rad CT)) 50 ml STK-MED ONCE IV Last administered on 12/11/16 07:54; Start 12/11/16 at 07:54; Stop 12/11/16 at 07:55; Status DC Hydromorphone HCl 0.5 mg 0.5 mg ONCE ONCE IV PUSH Last administered on 08:31; Start 12/11/16 at 08:30; Stop 12/11/16 at 08:31; Status DC Sodium Chloride (NS 1000 ml Inj) 1,000 ml @ 150 mls/hr Q6H40M IV Last administered on 12/12/16 06:01; Start 12/11/16 at 08:53 Sodium Chloride (NS Flush) 2 ml UNSCH PRN IV FLUSH FLUSH AFTER USING IV ACCESS ; Start 12/11/16 at 09:00 Sodium Chloride (NS Flush) 2 ml BID IV FLUSH Last administered on 12/11/16 20: 09; Start 12/11/16 at 09:00 Acetaminophen (Tylenol) 650 mg Q4H PRN PO Fever, headache, pain 1-4; Start 12/11 at 09:00 Naloxone HCl (Narcan Inj) 0.4 mg UNSCH PRN IV SEE LABEL COMMENTS; Start at 09:00 Senna/Docusate Sodium (Devorah-Colace) 1 tab BID PO Last administered on 12/11/16 12:18; Start 12/11/16 at 09:00 Magnesium Hydroxide (Milk Of Magnesia Liq) 30 ml Q12H PRN PO MILD - MODERATE CONSTIPATION; Start 12/11/16 at 09:00 Sennosides (Senokot) 17.2 mg Q12H PRN PO MODERATE - SEVERE CONSTIPATION; Start 12/11/16 at 09:00 Bisacodyl (Dulcolax Supp) 10 mg DAILY PRN RECTAL SEVERE CONSITIPATION; Start at 09:00 Lactulose (Lactulose Liq) 30 ml DAILY PRN PO SEVERE CONSITIPATION; Start at 09:00 Heparin Sodium (Porcine) (Heparin Inj) 5,000 units Q12HR SQ Last administered on 12/11/16 11:00; Start 12/11/16 at 09:00; Stop 12/11/16 at 12:48; Status DC Hydromorphone HCl (Dilaudid Pf Inj) 0.5 mg Q4H PRN IV PUSH PAIN SCALE 5 TO 10 Last administered on 12/11/16 20:14; Start 12/11/16 at 09:45 Amiodarone HCl (Cordarone) 200 mg DAILY PO ; Start 12/12/16 at 09:00 Amlodipine Besylate (Norvasc) 5 mg DAILY PO ; Start 12/12/16 at 09:00 Finasteride (Proscar) 5 mg DAILY PO ; Start 12/12/16 at 09:00 Fluoxetine HCl (PROzac) 20 mg DAILY PO ; Start 12/12/16 at 09:00 Gabapentin (Neurontin) 300 mg TID PO Last administered on 12/11/16 16:57; Start 12/11/16 at 13:00 Losartan Potassium (Cozaar) 50 mg DAILY PO ; Start 12/12/16 at 09:00 Rivaroxaban (Xarelto) 20 mg DAILY PO ; Start 12/12/16 at 09:00 Calcium/Vitamin D (Oscal-D 250-125) 250 mg BID PO Last administered on 20:09; Start 12/11/16 at 21:00 Famotidine (Pepcid) 10 mg BID PO Last administered on 12/11/16 20:09; Start 12/11/16 at 13:00 Metoprolol Tartrate (Lopressor) 25 mg Q12HR PO Last administered on 12/11/16 20 :09; Start 12/11/16 at 21:00 Metoprolol Tartrate 25 mg 25 mg ONCE ONCE PO Last administered on 12/11/16 14: 08; Start 12/11/16 at 13:30; Stop 12/11/16 at 13:31; Status DC Lactated Ringer's (Lr 1000 ml Inj) 1,000 ml @ 30 mls/hr Q24H PRN IV SEE LABEL COMMENTS; Start 12/12/16 at 02:00; Stop 12/15/16 at 01:59 Povidone Iodine (Betadine 5% Antisepsis Kit) 1 applic SPECIAL DELIVERY CARRIER PRN EACH NARE SEE LABEL COMMENTS; Start 12/12/16 at 02:00; Stop 12/15/16 at 01:59 Chlorhexidine Gluconate (Chlorhexidine 2% Cloth) 3 pack SPECIAL DELIVERY CARRIER PRN TOPICAL SEE LABEL COMMENTS; Start 12/12/16 at 02:00; Stop 12/15/16 at 01:59 A/P Assessment and Plan A/P - Choledocholithiasis - Acute pancreatitis - MRCP indicates stone in CBD. -continue IV fluid and pain control - GI consult appreciated and plan for ERCP - CAD s/p CABG in 1989. - Hypertension - Atrial fibrillation with rapid ventricular response - Continue Amiodarone 200mg Qday . Xarelto on hold for the planned procedure. - Amlodipine 5mg, Losartan 50mg Qday. - Started Metoprolol 25mg Q12hrs for rate control. -monitor on telemetry. - Probable acute kidney injury- improving - Creatinine 1.80. Baseline unknown. - Will continue to monitor. Continue IV fluid. - BPH - continue Finasteride 5mg Qday Full code. Sabrinarelto ( on hold ) Sergey Shrestha MD Dec 12, 2016 08:42
[2016-12-12 12:00] VITALS: BP 125/73; PULSE 96; RESP 17; TEMP 97; O2SAT 97
[2016-12-12] MEDS ORDERED: IOHEXOL 350 MG/ML 50 ML BTL (for RAD DIAG) OTHER ONE (14:33)
[2016-12-12] MEDS ORDERED: GLUCAGON 1 MG/ML VIAL IV ONE (15:03)
[2016-12-12] MEDS ORDERED: PROPOFOL 200 MG/20 ML AMP IV ONE (15:09)
--- NOTE | 2016-12-12 15:14 | GIPROC ---
[facility] [address] [facility]. [facility], [address] ERCP PROCEDURE REPORT EXAM DATE: 12/12/2016 PATIENT NAME: Shimon Muhammad MR #: [id number] BIRTHDATE: 1945 ATTENDING: Lm Vargas MD ORDER #: [id number] RECONCILER: Gallo Paulino and Luisana Fitzgerald STATUS: inpatient INDICATIONS: The patient is a 71 yr old male here for an ERCP due to abdominal pain of suspected biliary origin, abnormal MRCP, and bile duct stone on Computed Tomogram Scan PROCEDURE PERFORMED: ERCP with sphincterotomy/papillotomy ERCP with removal of calculus/calculi MEDICATIONS: Per Anesthesia and None. CONSENT: The patient understands the risks and benefits of the procedure and understands that these risks include, but are not limited to: sedation, allergic reaction, infection, perforation and/or bleeding. Alternative means of evaluation and treatment include, among others: physical exam, x-rays, and/or surgical intervention. The patient elects to proceed with this endoscopic procedure. medical equipment was checked for proper function. Hand hygiene and appropriate measures for infection prevention was taken. After the risks, benefits and alternatives of the procedure were thoroughly explained, Informed was verified, confirmed and timeout was successfully executed by the treatment team. With the patient in left semi-prone position, medications were administered intravenously.The Pentax [id number] was passed from the mouth into the esophagus and further advanced from the esophagus into the stomach. From stomach scope was directed to the second portion of the duodenum. Major papilla was aligned with the duodenoscope. The scope position was confirmed fluoroscopically. Rest of the findings/therapeutics are given below. The scope was then completely withdrawn from the patient and the procedure completed. The pulse, BP, and O2 saturation were monitored and documented by the physician and the nursing staff throughout the entire procedure. The patient was cared for as planned according to standard protocol. The patient was then discharged to recovery in stable condition and with appropriate post procedure care. A single filling defect was seen in the common bile duct. Single filling defect 6 mm, CBD 8 mm. 9 mm sphincterotomy and biliary sweep with 11.5 mm balloon. Stone fragments extruded. ADVERSE EVENT: There were no complications. IMPRESSIONS: Single filling defect 6 mm, CBD 8 mm. 9 mm sphincterotomy and biliary sweep with 11.5 mm balloon. Stone fragments extruded RECOMMENDATIONS: 1. Liquid diet 2. Liver enzymes REPEAT EXAM: As needed Return as needed for ERCP Lm Vargas MD eSigned: Lm Vargas MD 12/12/2016 3:14 PM cc:
--- NOTE | 2016-12-12 15:19 | EKG ---
Date Performed: 12/12/2016 Time Performed: 07:10:24 PTAGE: 71 years EKG: ATRIAL FIBRILLATION WITH RAPID VENTRICULAR RESPONSE RIGHT BUNDLE BRANCH BLOCK LEFT ANTERIOR FASCICULAR BLOCK ABNORMAL ECG NO PREVIOUS TRACING DOCTOR: Jimmy Vallejo Interpretating Date/Time 12/12/2016 15:18:58
[2016-12-12 16:00] VITALS: BP 137/78; PULSE 80; RESP 18; TEMP 95.9; O2SAT 97
[2016-12-12 20:00] VITALS: BP 168/85; PULSE 92; RESP 17; TEMP 95.2; O2SAT 96
--- NOTE | 2016-12-12 20:03 | RADRPT ---
EXAM DATE/TIME: 12/12/2016 14:57 [facility] COMPARISON: No previous studies available for comparison. INDICATIONS : Obstruction. FLUORO TIME: 1.7 minutes IMAGE COUNT: 3 CONTRAST: Instilled by Ordering Physician MEDICAL HISTORY : Cardiovascular disease. Gastroesophageal reflux disease. Hypertension. SURGICAL HISTORY : CABG. Cholecystectomy. ENCOUNTER: Initial ACUITY: 1 day PAIN SCORE: Non-responsive. LOCATION: Bilateral abdomen FINDINGS: An ERCP was performed by the ordering physician. 3 images are recorded digitally. On the 3rd image, some faint contrast is present in the common bile duct. CONCLUSION: ERCP as above. Lucio Draper MD on December 12, 2016 at 20:00 Board Certified Radiologist. This report was verified electronically.
[2016-12-12 20:35] VITALS: PULSE 100
[2016-12-12] MEDS: HYDROmorphone HCL PF 1 MG/ML VIAL IV PUSH PRN (23:21)
[2016-12-13] VITALS: BP 127/81; PULSE 73; RESP 17; TEMP 97.1; O2SAT 97
[2016-12-13 04:00] VITALS: BP 145/82; PULSE 92; RESP 17; TEMP 96.9; O2SAT 97
[2016-12-13 05:26] LABS: ALT (GPT) 104 U/L (12-78); ANION GAP 7 MEQ/L (5-15); AST (GOT) 15 U/L (15-37); BICARBONATE 24.8 MEQ/L (21.0-32.0); BLOOD UREA NITROGEN 17 MG/DL (7-18); CHLORIDE 107 MEQ/L (98-107); GLOMERULAR FILTRATION RATE 48 ML/MIN (>89); POTASSIUM 3.7 MEQ/L (3.5-5.1); SODIUM (NA) 139 MEQ/L (136-145)
[2016-12-13 05:27] LABS: ALKALINE PHOSPHATASE 141 U/L (45-117); TOTAL BILIRUBIN ADULT 0.4 MG/DL (0.2-1.0)
[2016-12-13 08:00] VITALS: BP 146/85; PULSE 114; RESP 17; TEMP 96.2; O2SAT 95
[2016-12-13] MEDS: SODIUM CHLORIDE 0.9% FLUSH 10 ML FLUSH IV FLUSH SCH (08:38)
[2016-12-13] MEDS: AMIODARONE 200 MG TAB PO SCH (08:39)
[2016-12-13] MEDS: LOSARTAN 50 MG TAB PO SCH (08:39)
[2016-12-13] MEDS: GABAPENTIN 300 MG CAP PO SCH ×2 (08:39→12:33)
[2016-12-13] MEDS: METOPROLOL TARTRATE 25 MG TAB PO SCH (08:39)
[2016-12-13] MEDS: FLUoxetine HCL 20 MG CAP PO SCH (08:39)
[2016-12-13] MEDS: CALCIUM/VITAMIN D 250 MG/125 U TAB PO SCH (08:39)
[2016-12-13] MEDS: RIVAROXABAN 20 MG TAB PO SCH (08:39)
[2016-12-13] MEDS: FAMOTIDINE 20 MG TAB PO SCH (08:39)
[2016-12-13] MEDS: amLODIPine BESYLATE 5 MG TAB PO SCH (08:39)
[2016-12-13] MEDS: SODIUM CHLOR 0.9% 1000 ML INJ 1,000 ML IV SCH (08:40)
[2016-12-13] MEDS: DOCUSATE SODIUM 50 MG/SENNA 8.6 MG TAB PO SCH (08:40)
[2016-12-13] MEDS: FINASTERIDE 5 MG TAB PO SCH (08:40)
--- NOTE | 2016-12-13 11:54 | HHI.PR ---
Subjective Remarks Patient seen and examined this morning. Afebrile vital signs stable. Patient reports that he is feeling quite comfortable at this time. He is wanting to go home. Informed him that we are waiting for the cleared to discharge from GI. He says that he is hungry and would like to have a regular diet. Says that he is able to get out of bed and walk around and is feeling quite comfortable. Objective Vitals Vital Signs Date Time Temp Pulse Resp B/P Pulse Ox O2 Delivery O2 Flow Rate FiO2 12/13/16 08:00 96.2 114 17 146/85 95 12/13/16 04:00 96.9 92 17 145/82 97 12/13/16 00:00 97.1 73 17 127/81 97 12/12/16 20:35 100 12/12/16 20:00 95.2 92 17 168/85 96 12/12/16 16:00 95.9 80 18 137/78 97 12/12/16 15:44 90 18 114/59 96 12/12/16 15:34 89 18 100/65 95 12/12/16 15:24 97.7 85 18 96/61 95 12/12/16 12:00 97.0 96 17 125/73 97 I/O 12/12/16 12/12/16 12/12/16 12/13/16 12/13/16 12/13/16 07:00 15:00 23:00 07:00 15:00 23:00 Intake Total 993 ml 0 ml 2291 ml 1382 ml Output Total 1000 ml 900 ml 800 ml Balance -7 ml 0 ml 1391 ml 582 ml Intake Oral 240 ml 0 ml 240 ml 480 ml IV Total 753 ml 1451 ml 902 ml Other 600 ml Output Urine Total 1000 ml 900 ml 800 ml # Voids 3 Result Diagram: 12/12/16 0525 12/13/16 0439 Imaging Last Impressions GI Procedure 12/12/16 0000 Signed Impressions: Service Date/Time: Monday, December 12, 2016 14:57 - CONCLUSION: ERCP as above. Lucio Draper MD Abdomen/Pelvis CT 12/11/16 0619 Signed Impressions: Service Date/Time: Sunday, December 11, 2016 07:35 - CONCLUSION: 1. Acute pancreatitis. 2. Left renal cyst. 3. Liver cyst. 4. Atherosclerosis. Zoran Wilkerson MD ADDENDUM: Upon further review there is a calcified stone in the distal common bile duct measuring 7.1 mm. Zoran Wilkerson MD Cholangiopancreatography MRI 12/11/16 0000 Signed Impressions: Service Date/Time: Sunday, December 11, 2016 10:10 - CONCLUSION: 1. Acute pancreatitis. 2. Hepatic cysts and a 1.6 cm pancreatic cyst, simple in appearance. 3. Left renal cyst. 4. Choledocholithiasis with a solitary stone in the distal common bile duct. Zoran Wilkerson MD Objective Remarks GENERAL: This is a well-nourished, well-developed patient, in no apparent distress. CARDIOVASCULAR: Regular rate and irregular rhythm without murmurs, gallops, or rubs. RESPIRATORY: Clear to auscultation. Breath sounds equal bilaterally. No wheezes , rales, or rhonchi. GASTROINTESTINAL: Abdomen soft, RUQ tenderness, nondistended. Normal, active bowel sounds MUSCULOSKELETAL: Extremities without clubbing, cyanosis, or edema. NEURO: Alert & Oriented x4 to person, place, time, situation. Moves all ext x4 Medications and IVs Current Medications Medications (Trade) Dose Ordered Sig/Jia Route Start Time Stop Time Status Last Admin (NS 1000 ml Inj) 1,000 ml @ 100 mls/hr Q10H IV 12/11/16 08:53 12/13/16 08:40 (NS Flush) 2 ml UNSCH PRN IV FLUSH 12/11/16 09:00 (NS Flush) 2 ml BID IV FLUSH 12/11/16 09:00 12/11/16 20:09 (Tylenol) 650 mg Q4H PRN PO 12/11/16 09:00 (Narcan Inj) 0.4 mg UNSCH PRN IV 12/11/16 09:00 (Devorah-Colace) 1 tab BID PO 12/11/16 09:00 12/12/16 20:41 (Milk Of Magnesia Liq) 30 ml Q12H PRN PO 12/11/16 09:00 (Senokot) 17.2 mg Q12H PRN PO 12/11/16 09:00 (Dulcolax Supp) 10 mg DAILY PRN RECTAL 12/11/16 09:00 (Lactulose Liq) 30 ml DAILY PRN PO 12/11/16 09:00 (Dilaudid Pf Inj) 0.5 mg Q4H PRN IV PUSH 12/11/16 09:45 12/12/16 23:21 (Cordarone) 200 mg DAILY PO 12/12/16 09:00 12/13/16 08:39 (Norvasc) 5 mg DAILY PO 12/12/16 09:00 12/13/16 08:39 (Proscar) 5 mg DAILY PO 12/12/16 09:00 12/13/16 08:40 (PROzac) 20 mg DAILY PO 12/12/16 09:00 12/13/16 08:39 (Neurontin) 300 mg TID PO 12/11/16 13:00 12/13/16 08:39 (Cozaar) 50 mg DAILY PO 12/12/16 09:00 12/13/16 08:39 (Xarelto) 20 mg DAILY PO 12/12/16 09:00 12/13/16 08:39 (Oscal-D 250-125) 250 mg BID PO 12/11/16 21:00 12/13/16 08:39 (Pepcid) 10 mg BID PO 12/11/16 13:00 12/13/16 08:39 Metoprolol Tartrate 25 mg 25 mg Q12HR PO 12/11/16 21:00 12/13/16 08:39 (Lr 1000 ml Inj) 1,000 ml @ 30 mls/hr Q24H PRN IV 12/12/16 02:00 12/15/16 01:59 A/P Problem List: (1) Choledocholithiasis ICD Code: K80.50 Status: Acute (2) Acute pancreatitis ICD Code: K85.90 Status: Acute (3) CAD (coronary artery disease) ICD Code: I25.10 Status: Acute (4) HTN (hypertension) ICD Code: I10 Status: Acute (5) Atrial fibrillation ICD Code: I48.91 Status: Acute Assessment and Plan This is a 71-year-old male with past medical history significant for A. fib , found to have pancreatitis due to choledocholithiasis - Choledocholithiasis - Acute pancreatitis: Patient reporting that his abdominal pain is greatly improved. - MRCP indicates stone in CBD. -continue IV fluid and pain control -Status post ERCP with removal of stone - CAD s/p CABG in 1989. - Hypertension - Atrial fibrillation with rapid ventricular response - Continue Amiodarone 200mg Qday . - Resume Xarelto - Amlodipine 5mg, Losartan 50mg Qday. - Started Metoprolol 25mg Q12hrs for rate control. -monitor on telemetry. - Probable acute kidney injury- improving - Creatinine 1.43. Baseline unknown. - Will continue to monitor. Continue IV fluid. Discharge Planning Anticipate discharge home today pending clearance by Art Carreno MD R2 Dec 13, 2016 11:53
[2016-12-13 12:00] VITALS: BP 128/83; PULSE 95; RESP 17; TEMP 96.3; O2SAT 96
[2016-12-13 16:00] VITALS: BP 133/76; PULSE 103; RESP 18; TEMP 97.3; O2SAT 96
--- NOTE | 2016-12-13 16:27 | HHI.GIFU ---
Subjective Remarks Resting in bed. No n/v. No abdominal pain. Ate regular lunch- chicken and sides and tolerated this well. Would like to go home today. Objective Vitals I&O Vital Signs Date Time Temp Pulse Resp B/P Pulse Ox O2 Delivery O2 Flow Rate FiO2 12/13/16 16:00 97.3 103 18 133/76 96 12/13/16 12:00 96.3 95 17 128/83 96 12/13/16 08:00 96.2 114 17 146/85 95 12/13/16 04:00 96.9 92 17 145/82 97 12/13/16 00:00 97.1 73 17 127/81 97 12/12/16 20:35 100 12/12/16 20:00 95.2 92 17 168/85 96 I/O 12/12/16 12/12/16 12/12/16 12/13/16 12/13/16 12/13/16 07:00 15:00 23:00 07:00 15:00 23:00 Intake Total 993 ml 0 ml 2291 ml 1382 ml 1223 ml Output Total 1000 ml 900 ml 800 ml 600 ml Balance -7 ml 0 ml 1391 ml 582 ml 623 ml Intake Oral 240 ml 0 ml 240 ml 480 ml 480 ml IV Total 753 ml 1451 ml 902 ml 743 ml Other 600 ml Output Urine Total 1000 ml 900 ml 800 ml 600 ml # Voids 3 # Bowel Movements 2 Laboratory Laboratory Tests Test 12/13/16 04:39 Sodium Level 139 Potassium Level 3.7 Chloride Level 107 Carbon Dioxide Level 24.8 Anion Gap 7 Blood Urea Nitrogen 17 Creatinine 1.43 Estimat Glomerular Filtration 48 Rate Random Glucose 87 Calcium Level 7.9 Total Bilirubin 0.4 Aspartate Amino Transf 15 (AST/SGOT) Alanine Aminotransferase 104 (ALT/SGPT) Alkaline Phosphatase 141 Total Protein 5.7 Albumin 2.1 Imaging Last Impressions GI Procedure 12/12/16 0000 Signed Impressions: Service Date/Time: Monday, December 12, 2016 14:57 - CONCLUSION: ERCP as above. Lucio Draper MD Abdomen/Pelvis CT 12/11/16 0619 Signed Impressions: Service Date/Time: Sunday, December 11, 2016 07:35 - CONCLUSION: 1. Acute pancreatitis. 2. Left renal cyst. 3. Liver cyst. 4. Atherosclerosis. Zoran Wilkerson MD ADDENDUM: Upon further review there is a calcified stone in the distal common bile duct measuring 7.1 mm. Zoran Wilkerson MD Cholangiopancreatography MRI 12/11/16 0000 Signed Impressions: Service Date/Time: Sunday, December 11, 2016 10:10 - CONCLUSION: 1. Acute pancreatitis. 2. Hepatic cysts and a 1.6 cm pancreatic cyst, simple in appearance. 3. Left renal cyst. 4. Choledocholithiasis with a solitary stone in the distal common bile duct. Zoran Wilkerson MD Physical Exam HEENT: Normocephalic; atraumatic; no jaundice. CHEST: CTA CARDIAC: RRR ABDOMEN: Soft, nondistended, nontender; no hepatosplenomegaly; bowel sounds are present in all four quadrants. EXTREMITIES: No clubbing, cyanosis, or edema. SKIN: Normal; no rash; no jaundice. ENGINEER BYPRODUCT: No focal deficits; alert and oriented times three. Assessment and Plan Plan ASSESSMENT - Choledocholithiasis. Abdomen/Pelvis CT (12/11/16)------> 1. Acute pancreatitis. 2. Left renal cyst. 3. Liver cyst. 4. Atherosclerosis. ADDENDUM : Upon further review there is a calcified stone in the distal common bile duct measuring 7.1 mm. MRCP (12/11/16)--->1. Acute pancreatitis. 2. Hepatic cysts and a 1.6 cm pancreatic cyst, simple in appearance. 3. Left renal cyst. 4. Choledocholithiasis with a solitary stone in the distal common bile duct. S/P ERCP with sphincterotomy and balloon sweep (12/12/16)------> Single filling defect 6 mm, CBD 8 mm. 9 mm sphincterotomy and biliary sweep with 11.5 mm balloon. Stone fragments extruded. Clinically, symptoms have resolved. He states that he "feels great." Tolerated regular diet. LFTs are trending down, T. Bili 0.4, AST 15, ALT 104, Alk Phosph 141. Would like to go home. - Gallstone Pancreatitis. IMPROVED. S/P ERCP with stone extraction as above. Labs improving. Tolerating diet. Asymptomatic. - Abdominal pain with n/v, secondary to above. RESOLVED. - Elevated LFTs secondary to above. LFTs are trending down, T. Bili 0.4, AST 15, ALT 104, Alk Phosph 141. PLAN - Okay to d/c home from GI standpoint - Low fat diet - No ETOH - LFT in one week - FU KIM in 10 days (leaving state on 12/24) - Notify GI of any nausea, vomiting, abdominal pain, fever, or chills - D/W patient and , verbalizes understanding. - Pt seen and examined by Dr. Paulson and myself and this note is written on his behalf Eboni Nash Dec 13, 2016 16:27
--- NOTE | 2016-12-13 16:33 | HHI.DS ---
Discharge Summary Admission Date Dec 11, 2016 at 08:41 Discharge Date: Dec 13, 2016 Admitting Diagnosis Pancreatitis (1) Choledocholithiasis ICD Code: K80.50 Diagnosis: Principal (2) Acute pancreatitis ICD Code: K85.90 Diagnosis: Principal (3) CAD (coronary artery disease) ICD Code: I25.10 Diagnosis: Principal (4) HTN (hypertension) ICD Code: I10 Diagnosis: Secondary (5) Atrial fibrillation ICD Code: I48.91 Diagnosis: Secondary Procedures ERCP with removal of stone Brief History - From Admission Mr. Muhammad is a pleasant 71-year-old male with a history of atrial fibrillation currently on Xarelto, CAD status post CABG, cholecystectomy who presents to the emergency department on 12/11/2016 due to nausea vomiting and abdominal pain. About 4 days ago patient started having nausea vomiting and abdominal pain mostly in the right upper quadrant as well as mid epigastric area. His epigastric pain does not radiate to the back. His pain is sharp and comes off and on. He denies any fever or chills. Patient felt somewhat better on 12/09/2016. However last night he felt lethargic and this morning he decided to come to the emergency department for evaluation. Denies any hematuria or dysuria. No cough or shortness of breath. No bowel movement in 2 days. CBC/BMP: 12/12/16 0525 12/13/16 0439 Significant Findings Laboratory Tests Test 12/11/16 12/11/16 12/12/16 12/13/16 06:20 08:00 05:25 04:39 White Blood Count 14.8 TH/MM3 11.2 TH/MM3 (4.0-11.0) (4.0-11.0) Mean Corpuscular Volume 78.9 FL 79.1 FL (80.0-100.0) (80.0-100.0) Mean Corpuscular Hemoglobin 25.3 PG 25.1 PG (27.0-34.0) (27.0-34.0) Neutrophils % (Manual) 87 % (16-70) Lymphocytes % 3 % (9-44) Neutrophils # (Manual) 13.3 TH/MM3 (1.8-7.7) Blood Urea Nitrogen 21 MG/DL (7-18) Creatinine 1.80 MG/DL 1.43 MG/DL 1.43 MG/DL (0.60-1.30) (0.60-1.30) (0.60-1.30) Estimat Glomerular Filtration 37 ML/MIN (>89) 48 ML/MIN (>89) 48 ML/MIN (>89) Rate Calcium Level 8.4 MG/DL 8.1 MG/DL 7.9 MG/DL (8.5-10.1) (8.5-10.1) (8.5-10.1) Aspartate Amino Transf 63 U/L (15-37) (AST/SGOT) Alanine Aminotransferase 280 U/L (12-78) 104 U/L (12-78) (ALT/SGPT) Alkaline Phosphatase 234 U/L 141 U/L (45-117) (45-117) Albumin 2.8 GM/DL 2.1 GM/DL (3.4-5.0) (3.4-5.0) Urine Protein 30 mg/dL (NEG-TRACE) Urine Occult Blood SMALL (NEG) Urine RBC 4-9 /hpf (0-3) Urine Squamous Epithelial 6-8 /hpf (0-5) Cells Hemoglobin 12.0 GM/DL (13.0-17.0) Hematocrit 37.8 % (39.0-51.0) Mean Corpuscular Hemoglobin 31.8 % Concent (32.0-36.0) Neutrophils (%) (Auto) 83.5 % (16.0-70.0) Lymphocytes (%) (Auto) 5.9 % (9.0-44.0) Monocytes (%) (Auto) 10.0 % (0.0-8.0) Neutrophils # (Auto) 9.3 TH/MM3 (1.8-7.7) Lymphocytes # (Auto) 0.7 TH/MM3 (1.0-4.8) Monocytes # (Auto) 1.1 TH/MM3 (0-0.9) Sodium Level 135 MEQ/L (136-145) Random Glucose 73 MG/DL (74-106) Total Protein 5.7 GM/DL (6.4-8.2) PE at Discharge GENERAL: This is a well-nourished, well-developed patient, in no apparent distress. CARDIOVASCULAR: Regular rate and irregular rhythm without murmurs, gallops, or rubs. RESPIRATORY: Clear to auscultation. Breath sounds equal bilaterally. No wheezes , rales, or rhonchi. GASTROINTESTINAL: Abdomen soft, RUQ tenderness, nondistended. Normal, active bowel sounds MUSCULOSKELETAL: Extremities without clubbing, cyanosis, or edema. NEURO: Alert & Oriented x4 to person, place, time, situation. Moves all ext x4 Hospital Course THis is a 71 year old male with a PMH significant for HTN, CAD, and cholecystectomy. He was admitted on 12/11/16 for acute pancreatitis. On 12/13/16 ERCP with stone remove was performed. Patient quickly returned to his base line. He was no longer in pain and was tolerating a diet. He was able to get out of bed and move around. He no longer was tender to the abdomen. GI cleared him for discharge with follow up as an outpatient. On 12/13/16 patient was back to baseline and cleared for discharge. Pt Condition on Discharge: Stable Discharge Disposition: Discharge Home Discharge Time: <= 30 minutes Discharge Instructions DIET: Follow Instructions for: Heart Healthy Diet Activities you can perform: Regular-No Restrictions Follow up Referrals: Gastroenterology - 10 Days @ [facility] New Orders: HEPATIC FUNCTION MEEK - 1 Week @ Outside [facility] - Other Continued Medications: Amiodarone (Amiodarone) 200 Mg Tab 200 MG PO DAILY Regulate Heart Beat #30 Ref 0 TAB Amlodipine (Norvasc) 5 Mg Tab 5 MG PO DAILY Blood Pressure Management #30 Ref 0 TAB Calcium Carbonate-Cholecalciferol (Calcium + D3) 600-200 Mg-Unit Tab 1 TAB PO BID TAB Finasteride (Proscar) 5 Mg Tab 5 MG PO DAILY Do not crush. Manage Prostate Problems #30 Ref 0 TAB Fluoxetine (Fluoxetine) 20 Mg Tab 20 MG PO DAILY #30 Ref 0 TAB Gabapentin (Gabapentin) 300 Mg Cap 300 MG PO TID #90 Ref 0 CAP Hydrocodone-Acetaminophen (Hydrocodone-Acetaminophen) 7.5-300 Mg Tab 1 TAB PO Q4H PRN PAIN Ref 0 TAB Losartan (Losartan) 50 Mg Tab 50 MG PO DAILY Blood Pressure Management #30 Ref 0 TAB Magnesium Oxide (Magnesium) 400 Mg Tablet Nitroglycerin SL (Nitrostat SL) 0.4 Mg Subl 0.4 MG SL DIRECTED 1 tablet under the tongue as needed for chest pain. Repeat every 5 minutes for a total of 3 DOSES or call 911 if NO relief. PRN CHEST PAIN #100 Ref 0 TAB.SL Ranitidine (Zantac) 150 Mg Tab 150 MG PO BID Reduce Stomach Acid #60 Ref 0 TAB Rivaroxaban (Xarelto) 20 Mg Tab 20 MG PO DAILY Blood Clot Prevention Ref 0 TAB Tramadol (Tramadol) 50 Mg Tab 50 MG PO Q6H PRN PAIN Ref 0 TAB Art Beckford MD R2 Dec 13, 2016 16:33
== END 2016-12-13 18:06 | disposition home or self-care (01) | DRG 439 ==
LOC: PHEFT 05:26 → PHEDA 08:41 → PH3A 11:25 → N07A 19:17
PROVIDERS: ADMIT Hospitalist; ATTEND Hospitalist
PROC: 0FC98ZZ Extirpation of Matter from Common Bile Duct, Via Natural or Artificial Opening Endoscopic (ICD-10-PCS; principal; 2016-12-12 14:30)
DX: K85.90 Acute pancreatitis without necrosis or infection, unspecified (principal); N17.9 Acute kidney failure, unspecified; K80.50 Calculus of bile duct without cholangitis or cholecystitis without obstruction; I48.91 Unspecified atrial fibrillation; K76.89 Other specified diseases of liver; N28.1 Cyst of kidney, acquired; K86.2 Cyst of pancreas; Z95.1 Presence of aortocoronary bypass graft; I10 Essential (primary) hypertension; I25.10 Atherosclerotic heart disease of native coronary artery without angina pectoris; K21.9 Gastro-esophageal reflux disease without esophagitis; Z79.02 Long term (current) use of antithrombotics/antiplatelets; Z87.891 Personal history of nicotine dependence; N40.0 Benign prostatic hyperplasia without lower urinary tract symptoms; Z90.49 Acquired absence of other specified parts of digestive tract
CPT/HCPCS: 74177; 74181; 74330; 76377; 80048; 80053; 81001; 83690; 85007; 85025; 85027; 93005; 96361; 96374; 96375; C1769; J1170; J1610; J1644; J2405; J3010; J7030; Q9963; Q9967

== ENCOUNTER → 2016-12-19 | Outpatient (CLI) | payer MEDICARE, BC ==
[~2016-12-19] MED LIST: AMIO200T PO; AMLO5 PO; CALC600T10 PO; FLUO1TAB3 PO; GABA300C5 PO; HYDR-2376 PO; LOSA50TA PO; MAGN400T24; NITR0.4S SL; PROS5TAB PO; TRAM50TA PO; XARE20TA PO; ZANT150T2 PO
[2016-12-19 09:38] LABS: INDIRECT BILIRUBIN 0.3 MG/DL (0.0-0.8); TOTAL BILIRUBIN ADULT 0.4 MG/DL (0.2-1.0)
== END ==
LOC: PLAB 06:43
PROVIDERS: ATTEND Hospitalist
DX: K80.50 Calculus of bile duct without cholangitis or cholecystitis without obstruction (principal)
CPT/HCPCS: 36415; 80076